=== PATIENT | female | born 1990 | race Caucasian/White ===

== ENCOUNTER 2021-09-29 16:10 | Emergency (ER) | payer BC ==
[~2021-09-29] VITALS: Ht 157.5 cm; Wt 56.7 kg
[~2021-09-29 16:10] MED LIST: ALBU4 PO; ALBU90OI6 INH; AMPDEX10 PO; AZIT250 PO; BENZ100A PO; BUSP5 PO; Bactrim Ds Tab1 EACH PO; CARI350 PO; CEFD300 PO; CEFU250 PO; CEPH500 PO; CIPR500 PO; CODACE30 PO; CODGUAEL PO; CRUTCH4 USE; CYCL10 PO; Cleocin HCl300 MG PO; Crutch1 EACH MISC; DULO60 PO; FLUO20 PO; HYDACE5 PO; HYDACE5325 PO; IBUP600 PO; IBUP800 PO; LEVOTHYROXINE; METPRE4DP PO; MULVITMINA PO; NAPR500 PO; ONDA4 PO; ONDA4ODT MM; ONDA8ODT MM; OXYACE5T PO; PRENATAL FORMU1 EAC1 PO; PROCODE120 PO; PROM25 PO; PYRI50 PO; Percocet 5-3251 EACH PO; RXCYCL10 PO; RXHYD5325 PO; RXONDA4ODT MM; RXPROCODSY PO; RXPROM25 PO; Robaxin-750750 MG PO; SERT100 PO; SERT50 PO; SULTRIDS PO; Strattera80 MG PO; VENL75ER PO
[2021-09-29 17:21] LABS: Influenza A, PCR NEGATIVE (NEGATIVE); Influenza B, PCR NEGATIVE (NEGATIVE); Resp Syncytial Virus, PCR NEGATIVE (NEGATIVE); SARS-Cov-2 (COVID-19) PCR, MMC NEGATIVE (NEGATIVE)
[2021-09-29] MEDS ORDERED: BENZ100A PO (17:53)
[2021-09-29] MEDS ORDERED: ALBU90OI INH (17:53)
== END 2021-09-29 18:05 | disposition home or self-care (01) ==
LOC: ER 16:10
PROVIDERS: Physician Assistant
DX: J20.9 Acute bronchitis, unspecified (principal); Z20.822 Contact with and (suspected) exposure to COVID-19; Z88.0 Allergy status to penicillin; Z88.8 Allergy status to other drugs, medicaments and biological substances; Z79.899 Other long term (current) drug therapy; F17.200 Nicotine dependence, unspecified, uncomplicated
CPT/HCPCS: 0241U; 71045; 87081; 87430; 99283-25; A9270

== ENCOUNTER 2022-12-07 14:29 | Emergency (ER) | payer OTHER ==
[~2022-12-07] VITALS: Ht 160 cm; Wt 59.0 kg
[2022-12-07 14:37] VITALS: BP 117/89
[2022-12-07 15:19] LABS: BASOPHILS ABSOLUTE AUTO 0.01 K/mm3 (0.00-0.23); BASOPHILS PERCENT AUTO 0 % (0-2); EOSINOPHILS ABSOLUTE AUTO 0.33 K/mm3 (0.00-0.68); EOSINOPHILS PERCENT AUTO 4 % (0-6); Hematocrit 45.3 % (33.0-51.0); Hemoglobin 15.2 g/dL (11.5-16.0); IMMATURE GRAN ABSOLUTE AUTO 0.04 K/mm3 (0.00-0.10); IMMATURE GRAN PERCENT AUTO 0 % (0-1); LYMPHOCYTES PERCENT AUTO 27 % (21-46); MONOCYTES ABSOLUTE AUTO 0.62 K/mm3 (0.16-1.47); MONOCYTES PERCENT AUTO 7 % (4-13); Mean Corpuscular HGB 29.4 pg (26.0-34.0); Mean Corpuscular HGB Conc 33.6 g/dL (31.5-36.5); Mean Corpuscular Volume 88 fL (80-100); NEUTROPHILS ABSOLUTE AUTO 5.91 K/mm3 (1.96-9.15); NEUTROPHILS PERCENT AUTO 63 % (41-73); Platelet Count 243 K/mm3 (150-400); RDW Coefficient Variation 13.8 % (11.7-14.2); RDW Standard Deviation 44.7 fL (35.1-46.3); Red Blood Cell Count 5.17 M/mm3 (3.80-5.20); White Blood Cell Count 9.41 K/mm3 (4.00-11.30)
[2022-12-07 15:31] LABS: Albumin, Blood 4.2 g/dL (3.4-5.0); Bilirubin, Total 0.7 mg/dL (0.1-1.0); Bun/Creatinine Ratio 10.6 (12.0-20.0); Calcium, Blood 9.8 mg/dL (8.5-10.1); Creatinine, Blood 0.76 mg/dL (0.40-1.00); Globulin, Blood 4.1 g/dL (2.2-4.0); Potassium, Blood 3.7 mmol/L (3.5-5.5); Total Protein, Blood 8.3 g/dL (6.4-8.2)
== END 2022-12-07 16:52 | disposition left against medical advice (07) ==
LOC: ER 14:29
PROVIDERS: Student in an Organized Health Care Education/Training Program
DX: O21.1 Hyperemesis gravidarum with metabolic disturbance (principal); O26.891 Other specified pregnancy related conditions, first trimester; R19.7 Diarrhea, unspecified; Z3A.08 8 weeks gestation of pregnancy; Z53.21 Procedure and treatment not carried out due to patient leaving prior to being seen by health care provider
CPT/HCPCS: 80053; 85025

== ENCOUNTER → 2022-12-07 | Outpatient (CLI) | payer OTHER ==
[~2022-12-07] MED LIST changes: +ALBU90OI INH; +ALPR1 PO; +AMPDEX5 PO; +Prozac20 MG PO
[2022-12-07 18:19] LABS: BASOPHILS ABSOLUTE AUTO 0.02 K/mm3 (0.00-0.23); BASOPHILS PERCENT AUTO 0 % (0-2); EOSINOPHILS ABSOLUTE AUTO 0.16 K/mm3 (0.00-0.68); EOSINOPHILS PERCENT AUTO 2 % (0-6); Hematocrit 41.3 % (33.0-51.0); Hemoglobin 14.2 g/dL (11.5-16.0); IMMATURE GRAN ABSOLUTE AUTO 0.03 K/mm3 (0.00-0.10); IMMATURE GRAN PERCENT AUTO 0 % (0-1); LYMPHOCYTES ABSOLUTE AUTO 1.54 K/mm3 (0.84-5.20); LYMPHOCYTES PERCENT AUTO 18 % (21-46); MONOCYTES ABSOLUTE AUTO 0.58 K/mm3 (0.16-1.47); MONOCYTES PERCENT AUTO 7 % (4-13); Mean Corpuscular HGB Conc 34.4 g/dL (31.5-36.5); Mean Corpuscular Volume 87 fL (80-100); Mean Platelet Volume 10.2 fL (9.1-12.4); NEUTROPHILS ABSOLUTE AUTO 6.14 K/mm3 (1.96-9.15); NEUTROPHILS PERCENT AUTO 73 % (41-73); Platelet Count 228 K/mm3 (150-400); RDW Coefficient Variation 13.8 % (11.7-14.2); RDW Standard Deviation 44.2 fL (35.1-46.3); Red Blood Cell Count 4.73 M/mm3 (3.80-5.20); White Blood Cell Count 8.47 K/mm3 (4.00-11.30)
[2022-12-07 18:30] LABS: Albumin/Globulin Ratio 1.1 (0.8-1.8); Bilirubin, Total 0.6 mg/dL (0.1-1.0); Bun/Creatinine Ratio 12.2 (12.0-20.0); Calcium, Blood 9.4 mg/dL (8.5-10.1); Creatinine, Blood 0.82 mg/dL (0.40-1.00); Globulin, Blood 3.8 g/dL (2.2-4.0); Potassium, Blood 3.6 mmol/L (3.5-5.5); Total Protein, Blood 7.8 g/dL (6.4-8.2)
== END | disposition home or self-care (01) ==
LOC: LAB 18:14 → LAB SHORT 18:14
PROVIDERS: Chiropractor
DX: E86.0 Dehydration (principal)
CPT/HCPCS: 80053; 85025

== ENCOUNTER 2023-02-26 00:14 | Emergency (ER) | payer OTHER ==
[~2023-02-26] VITALS: Ht 162.6 cm; Wt 68.0 kg
[2023-02-26] MEDS ORDERED: Vitamin B-12100 MCG PO (00:51)
[2023-02-26] MEDS ORDERED: REGLAN1013 PO (00:51)
[2023-02-26] MEDS ORDERED: SLEEP AID (00:51)
[2023-02-26 01:05] LABS: BASOPHILS ABSOLUTE AUTO 0.03 K/mm3 (0.00-0.23); BASOPHILS PERCENT AUTO 0 % (0-2); EOSINOPHILS ABSOLUTE AUTO 0.09 K/mm3 (0.00-0.68); EOSINOPHILS PERCENT AUTO 1 % (0-6); Hemoglobin 11.2 g/dL (11.5-16.0); IMMATURE GRAN ABSOLUTE AUTO 0.07 K/mm3 (0.00-0.10); IMMATURE GRAN PERCENT AUTO 1 % (0-1); LYMPHOCYTES ABSOLUTE AUTO 2.53 K/mm3 (0.84-5.20); LYMPHOCYTES PERCENT AUTO 22 % (21-46); MONOCYTES ABSOLUTE AUTO 0.69 K/mm3 (0.16-1.47); MONOCYTES PERCENT AUTO 6 % (4-13); Mean Corpuscular HGB 30.1 pg (26.0-34.0); Mean Corpuscular HGB Conc 33.9 g/dL (31.5-36.5); Mean Corpuscular Volume 89 fL (80-100); Mean Platelet Volume 10.8 fL (9.1-12.4); NEUTROPHILS ABSOLUTE AUTO 7.98 K/mm3 (1.96-9.15); NEUTROPHILS PERCENT AUTO 70 % (41-73); Platelet Count 205 K/mm3 (150-400); RDW Coefficient Variation 13.6 % (11.7-14.2); RDW Standard Deviation 44.2 fL (35.1-46.3); Red Blood Cell Count 3.72 M/mm3 (3.80-5.20); White Blood Cell Count 11.39 K/mm3 (4.00-11.30)
[2023-02-26 01:24] LABS: Albumin/Globulin Ratio 0.8 (0.8-1.8); Bilirubin, Total 0.2 mg/dL (0.1-1.0); Bun/Creatinine Ratio 21.8 (12.0-20.0); Calcium, Blood 9.3 mg/dL (8.5-10.1); Creatinine, Blood 0.64 mg/dL (0.40-1.00); Globulin, Blood 3.9 g/dL (2.2-4.0); Potassium, Blood 4.6 mmol/L (3.5-5.5); Total Protein, Blood 6.9 g/dL (6.4-8.2)
[2023-02-26 02:15] VITALS: BP 118/73
[2023-02-26 03:17] LABS: Source, Urine Clean Catch
[2023-02-26 03:21] LABS: Bilirubin, Urine Neg (Neg); Blood, Urine Neg (Neg); Glucose Qualitative, Urine Neg (Neg); Ketones, Urine Neg (Neg); Leukocyte Esterase, Urine Neg (Neg); Nitrite, Urine Neg (Neg); Protein, Urine Neg (Neg); Specific Gravity, Urine 1.015 (1.003-1.022); Urobilinogen, Urine NORM (Normal)
[2023-02-26 03:22] LABS: Appearance, Urine Clear (Clear); Color, Urine Yellow (P-Yellow)
== END 2023-02-26 03:40 | disposition home or self-care (01) ==
LOC: ER 00:14
PROVIDERS: Student in an Organized Health Care Education/Training Program
DX: O99.891 Other specified diseases and conditions complicating pregnancy (principal); R10.30 Lower abdominal pain, unspecified; Z88.0 Allergy status to penicillin; Z88.8 Allergy status to other drugs, medicaments and biological substances; Z91.018 Allergy to other foods; Z79.899 Other long term (current) drug therapy; O99.332 Smoking (tobacco) complicating pregnancy, second trimester; F17.200 Nicotine dependence, unspecified, uncomplicated; Z3A.19 19 weeks gestation of pregnancy
CPT/HCPCS: 80053; 81003; 85025; 99285-25

== ENCOUNTER → 2023-04-18 | Outpatient (CLI) | payer OTHER ==
[~2023-04-18] MED LIST changes: +PRENATAL TABLE1 EAC2 PO; +REGLAN1013 PO; +SLEEP AID; +Vitamin B-12100 MCG PO
== END ==
LOC: LAB SHORT 14:53 → LAB 14:53
PROVIDERS: Family Medicine
DX: N89.8 Other specified noninflammatory disorders of vagina (principal)
CPT/HCPCS: 82731

== ENCOUNTER 2023-05-04 18:34 | Emergency (ER) | payer OTHER ==
[~2023-05-04] VITALS: Ht 157.5 cm; Wt 77.1 kg
[2023-05-04 18:41] VITALS: BP 121/76
[2023-05-04 19:20] LABS: BASOPHILS ABSOLUTE AUTO 0.02 K/mm3 (0.00-0.23); BASOPHILS PERCENT AUTO 0 % (0-2); EOSINOPHILS PERCENT AUTO 1 % (0-6); Hematocrit 28.9 % (33.0-51.0); Hemoglobin 9.4 g/dL (11.5-16.0); IMMATURE GRAN ABSOLUTE AUTO 0.28 K/mm3 (0.00-0.10); IMMATURE GRAN PERCENT AUTO 2 % (0-1); LYMPHOCYTES ABSOLUTE AUTO 1.77 K/mm3 (0.84-5.20); LYMPHOCYTES PERCENT AUTO 15 % (21-46); MONOCYTES ABSOLUTE AUTO 0.78 K/mm3 (0.16-1.47); MONOCYTES PERCENT AUTO 7 % (4-13); Mean Corpuscular HGB 28.3 pg (26.0-34.0); Mean Corpuscular HGB Conc 32.5 g/dL (31.5-36.5); Mean Corpuscular Volume 87 fL (80-100); Mean Platelet Volume 10.1 fL (9.1-12.4); NEUTROPHILS ABSOLUTE AUTO 8.94 K/mm3 (1.96-9.15); NEUTROPHILS PERCENT AUTO 75 % (41-73); Platelet Count 193 K/mm3 (150-400); RDW Coefficient Variation 14.2 % (11.7-14.2); RDW Standard Deviation 44.4 fL (35.1-46.3); Red Blood Cell Count 3.32 M/mm3 (3.80-5.20); White Blood Cell Count 11.89 K/mm3 (4.00-11.30)
[2023-05-04 19:37] LABS: Albumin, Blood 2.7 g/dL (3.4-5.0); Albumin/Globulin Ratio 0.7 (0.8-1.8); Bilirubin, Total 0.2 mg/dL (0.1-1.0); Bun/Creatinine Ratio 12.1 (12.0-20.0); Calcium, Blood 8.6 mg/dL (8.5-10.1); Creatinine, Blood 0.75 mg/dL (0.40-1.00); Globulin, Blood 3.9 g/dL (2.2-4.0); Percent Saturation 38.8 % (15.0-50.0); Potassium, Blood 3.8 mmol/L (3.5-5.5); Total Protein, Blood 6.6 g/dL (6.4-8.2)
== END 2023-05-04 20:00 | disposition home or self-care (01) ==
LOC: ER 18:34
PROVIDERS: Physician Assistant
DX: O9A.213 Injury, poisoning and certain other consequences of external causes complicating pregnancy, third trimester (principal); T45.4X1A Poisoning by iron and its compounds, accidental (unintentional), initial encounter; O99.333 Smoking (tobacco) complicating pregnancy, third trimester; F17.200 Nicotine dependence, unspecified, uncomplicated; Z3A.28 28 weeks gestation of pregnancy; Z88.0 Allergy status to penicillin; Z88.8 Allergy status to other drugs, medicaments and biological substances
CPT/HCPCS: 80053; 83540; 83550; 85025; 99284

== ENCOUNTER → 2023-06-16 | Outpatient (CLI) | payer OTHER ==
[2023-06-16 18:59] LABS: BASOPHILS ABSOLUTE AUTO 0.03 K/mm3 (0.00-0.23); BASOPHILS PERCENT AUTO 0 % (0-2); EOSINOPHILS PERCENT AUTO 1 % (0-6); Hematocrit 34.3 % (33.0-51.0); Hemoglobin 10.6 g/dL (11.5-16.0); IMMATURE GRAN ABSOLUTE AUTO 0.27 K/mm3 (0.00-0.10); IMMATURE GRAN PERCENT AUTO 2 % (0-1); LYMPHOCYTES ABSOLUTE AUTO 1.71 K/mm3 (0.84-5.20); LYMPHOCYTES PERCENT AUTO 13 % (21-46); MONOCYTES ABSOLUTE AUTO 0.94 K/mm3 (0.16-1.47); MONOCYTES PERCENT AUTO 7 % (4-13); Mean Corpuscular HGB 26.4 pg (26.0-34.0); Mean Corpuscular HGB Conc 30.9 g/dL (31.5-36.5); Mean Corpuscular Volume 85 fL (80-100); Mean Platelet Volume 10.8 fL (9.1-12.4); NEUTROPHILS ABSOLUTE AUTO 9.71 K/mm3 (1.96-9.15); NEUTROPHILS PERCENT AUTO 76 % (41-73); NRBC ABSOLUTE 0.02 K/mm3 (0.00-0.02); NRBC Auto 0.2 /100 WBC (0.0-0.2); Platelet Count 215 K/mm3 (150-400); RDW Coefficient Variation 15.9 % (11.7-14.2); RDW Standard Deviation 49.1 fL (35.1-46.3); Red Blood Cell Count 4.02 M/mm3 (3.80-5.20); White Blood Cell Count 12.76 K/mm3 (4.00-11.30)
[2023-06-16 20:31] LABS: Percent Saturation 5.1 % (15.0-50.0); Thyroid Stimulating Hormone 0.844 uIU/mL (0.360-4.800)
== END ==
LOC: LAB SHORT 17:23 → LAB 17:23
PROVIDERS: Family Medicine
DX: O09.213 Supervision of pregnancy with history of pre-term labor, third trimester (principal); O26.819 Pregnancy related exhaustion and fatigue, unspecified trimester
CPT/HCPCS: 82728; 83540; 83550; 84443; 85025

== ENCOUNTER → 2023-07-07 | Outpatient (CLI) | payer OTHER | LOC: LAB 15:36 → LAB SHORT 15:36 | DX: O09.90 Supervision of high risk pregnancy, unspecified, unspecified trimester (principal); Z3A.00 Weeks of gestation of pregnancy not specified | CPT/HCPCS: 87081; 87150 ==

== ENCOUNTER 2023-07-18 18:15 | Inpatient (IN) | payer OTHER ==
[~2023-07-18] VITALS: Ht 157.5 cm; Wt 84.0 kg
[2023-07-18] VITALS (15 sets, daily range): BP systolic 108–148; BP diastolic 56–81
[2023-07-18 18:37] LABS: BASOPHILS ABSOLUTE AUTO 0.04 K/mm3 (0.00-0.23); BASOPHILS PERCENT AUTO 0 % (0-2); EOSINOPHILS ABSOLUTE AUTO 0.06 K/mm3 (0.00-0.68); EOSINOPHILS PERCENT AUTO 0 % (0-6); Hematocrit 39.4 % (33.0-51.0); Hemoglobin 12.7 g/dL (11.5-16.0); IMMATURE GRAN ABSOLUTE AUTO 0.11 K/mm3 (0.00-0.10); IMMATURE GRAN PERCENT AUTO 1 % (0-1); LYMPHOCYTES ABSOLUTE AUTO 2.17 K/mm3 (0.84-5.20); LYMPHOCYTES PERCENT AUTO 16 % (21-46); MONOCYTES ABSOLUTE AUTO 0.93 K/mm3 (0.16-1.47); MONOCYTES PERCENT AUTO 7 % (4-13); Mean Corpuscular HGB 27.9 pg (26.0-34.0); Mean Corpuscular HGB Conc 32.2 g/dL (31.5-36.5); Mean Corpuscular Volume 87 fL (80-100); Mean Platelet Volume 10.8 fL (9.1-12.4); NEUTROPHILS ABSOLUTE AUTO 10.24 K/mm3 (1.96-9.15); NEUTROPHILS PERCENT AUTO 76 % (41-73); Platelet Count 180 K/mm3 (150-400); RDW Coefficient Variation 19.7 % (11.7-14.2); RDW Standard Deviation 61.6 fL (35.1-46.3); Red Blood Cell Count 4.55 M/mm3 (3.80-5.20); White Blood Cell Count 13.55 K/mm3 (4.00-11.30)
[2023-07-19] VITALS (15 sets, daily range): BP systolic 105–131; BP diastolic 57–75
--- NOTE | 2023-07-19 08:25 | NUR ---
at 0815 attempt to feed, mom has lots of colstrum she hand expressed, tried to suck on a nipple, baby started to suck then when got a few drops of colstrum from nipple wouldnt swallow and gagged. tried to drip it in, got 1.4cc colstrum in and baby continued to gag with the couple of drops, and then started have mild supra sternal retractions, and tachypnea, called resident physician to see and he notified dr crump. at [address]25 dr crump at bedside talking with parents, fob reluctant to have baby have and iv or go back on cpap, dr crump explained every thing to parents and they agreed to do the cpap and will reevaluate it in 2 hours, fob requested skin to skin for 10 minutes with mom and baby then to do cpap. dr crump agreed to 10 minutes, rt notified the need for cpap to be restarted at 0850
--- NOTE | 2023-07-19 15:24 | NUR ---
SO AND FAMILY INSTRUCTED TO CALL PRIOR TO FEEDS
--- NOTE | 2023-07-19 19:01 | NUR ---
PATIENT UP AND WALKING CARING FOR SELF AND INDEPENDENTLY, REPORT TO ONCOMING SHIFT
[2023-07-20 00:23] VITALS: BP 121/70
[2023-07-20 04:03] VITALS: BP 119/65
[2023-07-20 07:58] VITALS: BP 125/85
--- NOTE | 2023-07-20 08:18 | NUR ---
DC INSTRUCTIONS WENT OVER WITH PT AND SO, SHE READ THEM AND DIDNT WANT MUCH INFO, ENCOURAGED FOR HER TO MAKE HER APPT WITH [facility] AND THE BABY 2 WEEK APPT, DENIES ANY QUESTIONS REPORTS GOING WELL
[2023-07-20 09:09] LABS: Hematocrit 34.6 % (33.0-51.0); Hemoglobin 11.3 g/dL (11.5-16.0); Mean Corpuscular HGB 28.3 pg (26.0-34.0); Mean Corpuscular HGB Conc 32.7 g/dL (31.5-36.5); Mean Corpuscular Volume 87 fL (80-100); Mean Platelet Volume 10.9 fL (9.1-12.4); Platelet Count 168 K/mm3 (150-400); RDW Standard Deviation 62.9 fL (35.1-46.3); Red Blood Cell Count 3.99 M/mm3 (3.80-5.20); White Blood Cell Count 12.04 K/mm3 (4.00-11.30)
[2023-07-20] MEDS ORDERED: ACET500 PO (10:52)
[2023-07-20] MEDS ORDERED: IBUP800 PO (10:52)
--- NOTE | 2023-07-20 11:10 | NUR ---
dc home with baby and family, ambulate out, dr estrada electronically sent percocet and motrin to pt pharmacy of choice, pt bottom is painful, encouraged heat or ice packs, pt requested donut pillow we do not carry those, dr estrada updated on no donut pillows. dr estrada discussed sitz baths and will do follow up in office in 10-14 days if pain continues for pt, encoruaged for pt to call if has any questions, has ppfu at 1000 on
== END 2023-07-20 11:10 | disposition home or self-care (01) | DRG 806 ==
LOC: OBS 18:15 → BC 18:15 → OBS 18:25 → BC 19:26
PROVIDERS: Family Medicine; Obstetrics & Gynecology; ADMIT Advanced Practice Midwife
PROC: 10E0XZZ Delivery of Products of Conception, External Approach (ICD-10-PCS; principal; 2023-07-19)
PROC: 3E02340 Introduction of Influenza Vaccine into Muscle, Percutaneous Approach (ICD-10-PCS; 2023-07-19)
DX: O42.02 Full-term premature rupture of membranes, onset of labor within 24 hours of rupture (principal); O47.1 False labor at or after 37 completed weeks of gestation; Z37.0 Single live birth; O99.324 Drug use complicating childbirth; Z3A.39 39 weeks gestation of pregnancy; F12.90 Cannabis use, unspecified, uncomplicated; Z23 Encounter for immunization; O99.52 Diseases of the respiratory system complicating childbirth; J45.909 Unspecified asthma, uncomplicated; O99.344 Other mental disorders complicating childbirth; F39 Unspecified mood [affective] disorder; O76 Abnormality in fetal heart rate and rhythm complicating labor and delivery; O77.0 Labor and delivery complicated by meconium in amniotic fluid; O69.81X0 Labor and delivery complicated by cord around neck, without compression, not applicable or unspecified; Z71.51 Drug abuse counseling and surveillance of drug abuser; Z87.51 Personal history of pre-term labor; Z87.410 Personal history of cervical dysplasia
CPT/HCPCS: 36415; 51702; 59025; 85025; 85027; 85460; 86850; 86870; 86900; 86901; 86922; 96374; 96376; 99214; A9270; J1885; J2270; J2405; J2590; J2791; J3010; J7120; Q2036

== ENCOUNTER 2023-10-27 06:46 | Day surgery (SDC) | payer OTHER ==
[~2023-10-27] VITALS: Ht 160 cm; Wt 71.2 kg
[~2023-10-27 06:46] MED LIST changes: +ACET500 PO; +DOCU100 PO; +Dexamethasone Sod Phos 10 MG/ML 1ML VIAL ONE; +FentaNYL Citrate 50 MCG/ML 2 ML Injection ONE; +Midazolam HCl 1MG / ML 2ML Vial ONE; +Ondansetron HCl 2 MG / ML 2ML Vial ONE; +Rocuronium Bromide 10 MG/ML 5ML Injection IV ONE; +Sugammadex Sodium 200 MG/2ML SDV (100 MG/ML) ONE; +propofoL 40 ML IV ONE
[2023-10-27] MEDS ORDERED: Lactated Ringer's 1,000 ML IV ONE (07:13)
[2023-10-27] MEDS ORDERED: Adderall 5mg tab5 MG PO (07:22)
[2023-10-27] MEDS ORDERED: Ropivacaine 0.5% HCl/Pf 5 MG/ML 20ML VIAL ONE (07:34)
[2023-10-27] MEDS ORDERED: Albuterol 2.5 MG/3 ML VIAL ONE (07:36)
--- NOTE | 2023-10-27 07:52 | NUR ---
10/27/23 0752 YUMIKO TRAORE [id number] TX PER DR CERRATO
[2023-10-27] MEDS ORDERED: Ketorolac Tromethamine 30mg Vial ONE (08:17)
--- NOTE | 2023-10-27 08:31 | NUR ---
10/27/23 0831 Camila Marmolejo 20ML OF ROPIVACAINE 0.5% MIXED AND VERIFIED WITH 0.1ML OF EPI (1MG/ML) TO MAKE ROPIVACAINE 0.5% WITH EPI 1:200,000 FOR INJECTION AT THE OPSITE BY DR WINSTON.
[2023-10-27] MEDS ORDERED: EPINEPhrine HCl 1 MG/ML 1ML Amp XX ONE (08:34)
[2023-10-27] MEDS ORDERED: Glycopyrrolate 0.2 MG/ML 5ML VIAL ONE (08:36)
[2023-10-27] MEDS ORDERED: FentaNYL Citrate 50 MCG/ML 2 ML Injection ONE (09:34)
[2023-10-27 09:40] VITALS: BP 107/69
[2023-10-27] MEDS ORDERED: Ibuprofen 400 MG Tab ONE (09:42)
== END 2023-10-27 09:53 | disposition home or self-care (01) ==
LOC: ORSCSDS 06:46
PROVIDERS: Obstetrics & Gynecology
PROC: 0UT74ZZ Resection of Bilateral Fallopian Tubes, Percutaneous Endoscopic Approach (ICD-10-PCS; principal; 2023-10-27 08:00)
DX: Z30.2 Encounter for sterilization (principal)
CPT/HCPCS: 88302; A9270; J0171; J1100; J1885; J2250; J2405; J2704; J2795; J3010

== ENCOUNTER → 2024-01-10 | Outpatient (CLI) | payer OTHER ==
[~2024-01-10] MED LIST changes: +Adderall 5mg tab5 MG PO; -Dexamethasone Sod Phos 10 MG/ML 1ML VIAL ONE; -FentaNYL Citrate 50 MCG/ML 2 ML Injection ONE; -Midazolam HCl 1MG / ML 2ML Vial ONE; -Ondansetron HCl 2 MG / ML 2ML Vial ONE; -Rocuronium Bromide 10 MG/ML 5ML Injection IV ONE; -Sugammadex Sodium 200 MG/2ML SDV (100 MG/ML) ONE; -propofoL 40 ML IV ONE
== END | disposition home or self-care (01) ==
LOC: LAB 18:02 → LAB SHORT 18:02
DX: J02.9 Acute pharyngitis, unspecified (principal); K12.0 Recurrent oral aphthae
CPT/HCPCS: 87081

== ENCOUNTER → 2024-03-26 | Outpatient (CLI) | payer OTHER ==
[2024-04-03 10:00] LABS: HPV HIGH RISK BY TMA Not Detected; HPV SOURCE Cervical
== END ==
LOC: LAB SHORT 15:41 → LAB 15:41
PROVIDERS: Family Medicine
DX: Z01.419 Encounter for gynecological examination (general) (routine) without abnormal findings (principal)
CPT/HCPCS: 87624; G0123

== ENCOUNTER 2024-11-05 11:53 | Emergency (ER) | payer OTHER ==
[~2024-11-05] VITALS: Ht 157.5 cm; Wt 60.8 kg
[2024-11-05 12:04] VITALS: BP 130/79
== END 2024-11-05 13:05 | disposition home or self-care (01) ==
LOC: ER 11:53
DX: M54.6 Pain in thoracic spine (principal); G62.9 Polyneuropathy, unspecified; F17.200 Nicotine dependence, unspecified, uncomplicated; Z88.0 Allergy status to penicillin; Z88.8 Allergy status to other drugs, medicaments and biological substances; Z91.018 Allergy to other foods
CPT/HCPCS: 99283

== ENCOUNTER 2025-02-04 06:29 | Day surgery (SDC) | payer OTHER ==
[~2025-02-04] VITALS: Ht 157.5 cm; Wt 64.3 kg
[2025-02-04] MEDS ORDERED: CeFAZolin Sodium 2,000 MG VIAL ONE (07:32)
[2025-02-04] MEDS ORDERED: Lidocaine HCl 2% 10 ML SDA ONE (07:48)
[2025-02-04] MEDS ORDERED: FentaNYL Citrate 50 MCG/ML 2 ML Injection ONE (07:55)
[2025-02-04] MEDS ORDERED: Dexamethasone Sod Phos 10 MG/ML 1ML VIAL ONE (08:04)
[2025-02-04] MEDS ORDERED: Ondansetron HCl 2 MG / ML 2ML Vial ONE (08:06)
[2025-02-04] MEDS ORDERED: Ketorolac Tromethamine 30mg Vial ONE (08:06)
[2025-02-04 09:01] VITALS: BP 105/67
--- NOTE | 2025-02-04 09:04 | NUR ---
02/04/25 0904 Sierra Tan TRSFR TO STEPDOWN. DELAY IN VS D/T ROOM CLEANING. PT A&O, TALKING W STAFF . REQUESTING FAMILY PRESENCE D/T SEPERATION ANXIETY. MD TO BEDSIDE UPDATING PT ON RESULT, MADE AWARE OF HX ADVERSE RX TO [facility], STATES WILL ORDER PERCOCET. 0900 - FAMILY TO BEDSIDE
== END 2025-02-04 09:31 | disposition home or self-care (01) ==
LOC: ORSCSDS 06:29
PROVIDERS: Orthopaedic Surgery
PROC: 01N40ZZ Release Ulnar Nerve, Open Approach (ICD-10-PCS; principal; 2025-02-04 08:00)
PROC: 01N54ZZ Release Median Nerve, Percutaneous Endoscopic Approach (ICD-10-PCS; principal; 2025-02-04 08:00)
DX: G56.23 Lesion of ulnar nerve, bilateral upper limbs (principal); F90.9 Attention-deficit hyperactivity disorder, unspecified type; Z79.899 Other long term (current) drug therapy
CPT/HCPCS: J0690; J1100; J1885; J2003; J2405; J2704; J3010; J7120